=== PATIENT | female | born 2000 | race Caucasian/White ===

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

== ENCOUNTER 2021-02-02 12:13 | Emergency (ER) | payer MEDICAID, SELFPAY ==
--- NOTE | 2021-02-02 | ECG_ITS ---
Test Reason : CHEST PAIN Blood Pressure : / mmHG Vent. Rate : 072 BPM Atrial Rate : 072 BPM P-R Int : 142 ms QRS Dur : 072 ms QT Int : 392 ms P-R-T Axes : 037 017 000 degrees QTc Int : 429 ms Normal sinus rhythm Normal ECG When compared with ECG of 23-OCT-2007 08:51, No significant changes seen Referred By: Generic ED Physician Electronically Signed By:Dimitris Reed
--- NOTE | ~2021-02-02 | CT_ITS ---
EXAMINATION: CT ANGIOGRAM OF THE CHEST WITH AND WITHOUT CONTRAST (CT PULMONARY ANGIOGRAM FOR PE) CLINICAL INFORMATION: Reason for Exam chest pain elevated ddimer COMPARISON: None TECHNIQUE: Prior to contrast administration, noncontrast localization images were obtained. Subsequently, multidetector volumetric imaging was performed from the thoracic inlet to below the diaphragms following the administration of 65 mL Omnipaque 350 intravenous contrast. No contrast reaction reported Sagittal, coronal, and MIP oblique sagittal reformatted images were obtained on the CT workstation, uploaded to PACS, and reviewed. This CT examination was performed using dose optimization techniques as appropriate, variously including the following: *Automated exposure control *Adjustment of mA and/or kV according to patient size (this includes techniques or standardized protocols for targeted exams where dose is matched to indication/reason for exam; i.e. extremities or head) *Use of iterative reconstruction technique Total exam dose-length product 480 mGy-cm FINDINGS: QUALITY OF STUDY/CONTRAST BOLUS: Satisfactory. PULMONARY ARTERIES: No central or segmental pulmonary emboli. Evaluation of subsegmental levels is limited due to contrast bolus opacification of the vessels. THORACIC AORTA: No aneurysm or dissection. LUNG: No focal consolidation, nodules or masses. The central airways are patent. PLEURA: No pleural effusion or pneumothorax. MEDIASTINUM: Normal heart size. No pericardial effusion. No hilar or mediastinal lymphadenopathy. No evidence of septal bowing or right heart strain. CHEST WALL/AXILLA: No axillary or internal mammary lymphadenopathy. OSSEOUS STRUCTURES: No acute or suspicious osseous abnormality. UPPER ABDOMEN: Unremarkable. No reflux of contrast into the hepatic veins to suggest elevated right heart pressures. CT/CT angio chest PE protocol IMPRESSION: No pulmonary embolism or other acute intrathoracic abnormality. VTE: negative
[2021-02-02 12:47] VITALS: BP 119/76; PULSE 89; RESP 18; TEMP 37.5; O2SAT 98; BMI 44.1
--- NOTE | 2021-02-02 13:26 | ED_ITS ---
HPI - Recheck/Abnormal Lab/Rx General Chief Complaint: Recheck/Abnormal Lab/Rx Stated Complaint: abnormal labs Time Seen by Provider: 02/02/21 13:24 Source: patient Mode of arrival: ambulatory Limitations: no limitations History of Present Illness complaint: abnormal lab (dimer 580 with PCP yesterday ) Initial visit (ago): day(s) (1) Initial visit for: other (chest pain on and off but worse for past week uses control patches sent for PE r/o) Returns today for: called because of abnormal lab/test Symptoms since prior visit: no new symptoms Context: called for abnormal lab result Associated symptoms: chest pain Related Data Home Medications Medication Instructions Recorded Confirmed clonidine HCl 0.2 mg tablet 0.2 mg PO BEDTIME 02/04/20 dexmethylphenidate 10 mg tablet 20 mg PO DAILY tab 02/04/20 (Focalin) loratadine 10 mg tablet (Claritin) 10 mg PO DAILY 02/04/20 Previous Rx's Medication Instructions Recorded cyclobenzaprine 10 mg tablet 10 mg PO TID PRN #14 tab 02/02/21 ibuprofen 600 mg tablet 600 mg PO Q6H PRN #30 tab 02/02/21 Allergies Allergy/AdvReac Type Severity Reaction Status Date / Time ethinyl estradiol Allergy Mild Unknown Verified 02/02/21 12:46 [From [place] ()] levonorgestrel Allergy Mild Unknown Verified 02/02/21 12:46 [From [facility] ()] Review of Systems Review of Systems: Constitutional : No Weight loss, No Fever, No Chills ENT/Mouth : No sore throat, No Rhinorrhea Eyes: No Eye Pain, No Swelling Cardiovascular : pos Chest Pain, no SOB, no Dyspnea on Exertion, No Orthopnea, No Edema, No Palpitations Respiratory : No Cough, No Sputum Gastrointestinal : no Nausea, No Vomiting, No Diarrhea, No abdominal Pain, No Hematochezia, No Melena Genitourinary : No Dysuria, No Urinary Frequency Musculoskeletal : No joint pain, No Myalgias, No Joint Swelling Skin : No Skin Lesions, No rash Neuro : No Weakness, No Numbness, No Dizziness, No Headache Psych : No Anxiety/Panic, No Depression Heme/Lymph: No Bruising, No Lymphadenopathy Endocrine : No Polyuria, No Polydipsia All other systems reviewed and are negative [facility] Past Medical History Attestation statement: The following information was validated with the patient. Medical History Asthma Asthma COVID-19 Gallstones Morbid obesity Social History Social History (Updated 02/02/21 @ 13:56 by Salma Mcclain DO) Alcohol intake: never Patient Tobacco Use Status: Never used Tobacco Use of substances other than those prescribed or required for medical reasons: No Advance Directives: No Advance Directives Information Provided: No Patient : No Physical Exam Vital Signs: Vital Signs: Last Vital Signs Temp 99.5 F 02/02/21 12:47 Pulse 65 02/02/21 15:24 Resp 16 02/02/21 15:24 BP 112/65 02/02/21 15:24 Pulse Ox 99 02/02/21 15:24 BMI result Body Mass Index 44.1 Appearance: Alert. Oriented X3. No acute distress. Eyes: Pupils equal, round and reactive to light. ENT: Pharynx normal. Neck: Normal inspection. Neck supple. CVS: Normal heart rate and rhythm. Pulses normal. Respiratory: No respiratory distress. Breath sounds normal. Chest: ttp along sternum reproduces pain Abdomen: Soft and nontender. Skin: Skin warm and dry. Normal skin color. Normal skin turgor. Extremities: No lower extremity edema. No calf ttp Neuro: Oriented X 3. No motor deficit. No sensory deficit. Course Course Course Narrative: signed out to Darleen Nava pending CTA MDM - Recheck/Abnormal Lab/Rx MDM Narrative Medical decision making narrative: 20 yo female with control patches on and off chest pain but notes past week much worse she saw her PCP yesterday who ran a ddimer test and it came back at 580 sent to ED for CTA - at this time will obtain EKG, troponin, CTA for PE though I think her exam is more concerning for costochondritis Lab Data Result diagrams: 02/02/21 15:42 02/02/21 15:42 Labs: Lab Results 02/02/21 02/02/21 02/02/21 Range/Units 15:42 15:42 15:42 WBC 8.9 (4.8-10.8) X10*3/uL RBC 4.46 (4.20-5.50) X10*6/uL Hgb 11.2 L (12.0-16.0) g/dl Hct 35.8 L (37.0-47.0) % MCV 80.3 (80.0-98.0) fL MCH 25.1 L (27.0-33.0) pg MCHC 31.3 (31.0-35.0) g/dl RDW 14.3 (11.0-16.0) % Plt Count 293 (160-400) X10*3/uL MPV 10.4 (9.4-12.3) fL Immature Gran % (Auto) 0.1 (0.0-0.4) % Neut % (Auto) 67.2 (45-73) % Lymph % (Auto) 24.3 (20-40) % [place] % (Auto) 5.8 (2-11) % Eos % (Auto) 2.2 (0-4) % Baso % (Auto) 0.4 (0-2) % Lymph # (Auto) 2.2 (1.2-4.9) X10*3/uL [place] # (Auto) 0.5 (0.1-1.2) X10*3/uL Eos # (Auto) 0.2 (0.0-0.4) X10*3/uL Baso # (Auto) 0.0 (0.0-0.2) X10*3/uL Abs Immat Gran (auto) 0.01 (0.00-0.03) X10*3/uL Absolute Neuts (auto) 6.0 (2.0-8.3) x10*3/uL Absolute Nucleated RBC 0.000 (0.0-0.012) X10*3/uL Nucleated RBC % (auto) 0.0 (0.0-0.2) /100WBC Sodium 141 (135-145) mmol/L Potassium 4.8 (3.3-5.1) mmol/L Chloride 111 H (96-108) mmol/L Carbon Dioxide 21 L (22-29) mmol/L Anion Gap 14 (12-20) BUN 8 L (9-16) mg/dL Creatinine 0.73 (0.5-1.4) mg/dL Estim Creat Clear Calc 155.5 Estimated GFR > 60 Random Glucose 83 (60-115) mg/dL Calcium 8.5 (8.4-10.2) mg/dL Troponin I High Sens < 3.5 (<3.5-17.0) ng/L ECG Data Attestation: I personally reviewed and interpreted this ECG as follows: ECG interpretation date: 02/02/21 ECG interpretation time: 14:09 Interpretation: Rate: 72 Rhythm: NSR [place]: normal Normal P waves. Normal SEN. Normal QRS complex. ST T wave : inverted inferior, nonspecific anterior no NANI qTC: normal prior studies: none The study has been interpreted contemporaneously by me. . Discharge Plan Discharge Clinical Impression: Acute costochondritis Instructions: Costochondritis (ED) Additional Instructions: return to ED for any worsening symptoms or concerns Prescriptions: New cyclobenzaprine 10 mg tablet 10 mg PO TID PRN (Reason: muscle spasm) Qty: 14 RF: 0 ibuprofen 600 mg tablet 600 mg PO Q6H PRN (Reason: pain) Qty: 30 RF: 0 No Action dexmethylphenidate [Focalin] 10 mg tablet 20 mg PO DAILY RF: 0 clonidine HCl 0.2 mg tablet 0.2 mg PO BEDTIME RF: 0 loratadine [Claritin] 10 mg tablet 10 mg PO DAILY RF: 0 Stand Alone Forms: Work/School Release
[2021-02-02] MEDS: Ketorolac Tromethamine 15 MG/ML VIAL 30 MG IVPUSH (15:20)
[2021-02-02] MEDS: Cyclobenzaprine HCl 10 MG TABLET PO (15:21)
[2021-02-02 15:24] VITALS: BP 112/65; PULSE 65; RESP 16; O2SAT 99
[2021-02-02 15:47] LABS: MANUAL DIFF FLAG NO
[2021-02-02 15:49] LABS: Basophils Percent Auto 0.4 % (0-2); Eosinophils Absolute Auto 0.2 X10*3/uL (0.0-0.4); Eosinophils Percent Auto 2.2 % (0-4); Hematocrit 35.8 % (37.0-47.0); Hemoglobin 11.2 g/dl (12.0-16.0); Imm Gran Abs Auto 0.01 X10*3/uL (0.00-0.03); Imm Gran Pct Auto 0.1 % (0.0-0.4); Lymphocytes Absolute Auto 2.2 X10*3/uL (1.2-4.9); Lymphocytes Percent Auto 24.3 % (20-40); Mean Corpuscular HGB Conc 31.3 g/dl (31.0-35.0); Mean Corpuscular Hemoglobin 25.1 pg (27.0-33.0); Mean Corpuscular Volume 80.3 fL (80.0-98.0); Mean Platelet Volume 10.4 fL (9.4-12.3); Monocytes Absolute Auto 0.5 X10*3/uL (0.1-1.2); Monocytes Percent Auto 5.8 % (2-11); Neutrophils Percent Auto 67.2 % (45-73); Platelet Count 293 X10*3/uL (160-400); Red Blood Count 4.46 X10*6/uL (4.20-5.50); Red Cell Distribution Width 14.3 % (11.0-16.0); White Blood Count 8.9 X10*3/uL (4.8-10.8)
[2021-02-02 16:03] LABS: Anion Gap 14 (12-20); Blood Urea Nitrogen 8 mg/dL (9-16); Calcium 8.5 mg/dL (8.4-10.2); Carbon Dioxide 21 mmol/L (22-29); Chloride 111 mmol/L (96-108); Creatinine Clr Calc Pharmacy 155.5; Estimated Glomerular Filt Rate > 60; Glucose Random 83 mg/dL (60-115); Potassium 4.8 mmol/L (3.3-5.1); Sodium 141 mmol/L (135-145)
[2021-02-02 16:07] LABS: Troponin-I High Sensitivity < 3.5 ng/L (<3.5-17.0)
[2021-02-02] MEDS: iohexoL 350 MG/ML 100 ML INFUS..BTL 65 ML IV (16:45)
[2021-02-02 17:45] LABS: UPreg QC Valid YES; Urine Pregnancy NEGATIVE (NEGATIVE)
[2021-02-02 17:51] VITALS: BP 123/66; PULSE 68; RESP 16; TEMP 36.7; O2SAT 99
== END 2021-02-02 18:53 | disposition home or self-care (01) ==
PROVIDERS: Emergency Provider Emergency Medicine
DX: M94.0 Chondrocostal junction syndrome [Tietze] (principal); J45.909 Unspecified asthma, uncomplicated
CPT/HCPCS: 36415; 71275; 80048; 81025; 84484; 85025; 93005; 96374; 99284; J1885; Q9967

== ENCOUNTER → 2021-03-24 13:53 | Outpatient (REF) | payer MEDICAID, SELFPAY ==
--- NOTE | 2021-03-24 13:56 | CA_ITS ---
Transthoracic Echocardiogram Patient (Last, First, Middle): Emely Morgan, Gender: Female Date of : 2000 Age: 21 Procedure Date: 03/24/2021 Procedure Type: Transthoracic Echocardiogram Location: OP Height: 162.56 cm Weight: 117.03 kg BSA: 2.18 m2 Heart Rate: bpm BP: 115 / 70 mmHg Child Development Specialist: ESVIN Referring MD: Bisi Neil NP Hospitality Workers: Josiah Stover MD Symptoms: J46.20 MILD INTERMITTENT ASTHMA, R07.9 CHEST PAIN Study Quality: Fair ECG Rhythm: Sinus Conclusions: - Normal study Findings Left Ventricle Normal left ventricular size, thickness, and systolic function. The visually estimated ejection fraction is between 60-65%. There is no evidence of regional wall motion abnormalities. Spectral Doppler is indicative of a normal filling pattern. Patient was administered definity and developed side effects with chest discomfort and shortness of breath. Hemodynamically she was stable. Repeated limited echocardiogram post reaction which showed normal LV systolic function with no regional wall motion abnormality and normal global longitudinal endocardial strain at -18.8%. Right Ventricle Normal right ventricular cavity size and systolic function. Atria Both atria are normal in size. There is no evidence of interatrial shunt. Aortic Valve The aortic valve structure and function is likely normal. There is no aortic valve stenosis. There is no aortic valve regurgitation. Mitral Valve Normal mitral valve structure and function. There is trace mitral valve regurgitation. There is no mitral valve stenosis. Pulmonic Valve The pulmonic valve is likely normal. There is mild pulmonic valve regurgitation. Tricuspid Valve Normal tricuspid valve structure. There is trace tricuspid valve regurgitation. The right ventricular systolic pressure is normal. The right ventricular systolic pressure is 24 mmHg. Normal right atrial pressure. There is no evidence of pulmonary hypertension. Great Vessels All visible segments of the aorta are normal in size. The pulmonary artery was not well visualized. Venous The inferior vena cava is normal in size and collapses greater than 50% with inspiration. Pericardium/Pleural There is no evidence of pericardial effusion. Prior Study Comparison No prior study available for comparison. Measurements 2D Linear Measurements IVSd: 0.77 0.6-0.9/0.6-1.0 cm LVIDd: 4.77 3.9-5.3/4.2-5.9 cm LVIDd Index: 2.19 2.4-3.2/2.2-3.1 cm/m2 LVIDs: 2.98 2.0-3.6 cm LVPWd: 0.83 0.7-1.1 cm Ao Root: 2.90 2.1-3.5 cm LA Diam: 3.50 2.7-3.8/3.0-4.0 cm LAIDs Index: 1.61 1.5-2.3 cm/m2 LV Mass: 155.94 67-162/88-224 g LV Mass Index: 71.53 43-95/49-115 g/m2 LVOT Diam: 2.00 3.0+(-)1.3 cm 2D Systolic Function EF 4C: 61.80 >55% EF 2C: 57.60 >55% EF BiP: 59.60 >55% Mitral Valve MV Pk E: 0.75 MV PK A: 0.54 MV Decel Time: 188.00 E/A: 1.40 E'Lateral: 12.20 E'Medial: 10.70 E/E' Med: 7.00 E/E' Lat: 6.20 PHT: 55.00 MVA PHT: 4.00 Decel [place]: 4.01 Aortic Valve AoV Pk Familia: 1.22 AoV Mn Familia: 0.86 AoV VTI: 0.23 AoV Pk Grad: 6.00 Aov Mn Grad: 3.00 LVOT LVOT Diam: 2.00 LVOT Area: 3.14 Diastolic Function MV Pk E: 0.75 MV Pk A: 0.54 E/A: 1.40 E'Medial: 10.70 E/E' Med: 7.00 E' Laterial: 12.20 E/E' Lat: 6.20 Right Ventricle TAPSE (mm): 21.70 TVS' Familia: 13.40 Tricuspid Valve TR Pk Familia: 2.27 TR Pk Grad: 21.00 RA Press: 3.00 RVSP: 24.00 Great Vessels Aorta Ao Root-2D: 2.90 2.0-3.7 cm Ao Asc: 2.80 2.1-3.4 cm Ao Arch: 2.50 Updated in Other Vendor System with Status of Final Josiah Stover MD electronically signed on 03/24/2021 5:47:20 PM with status of Final
== END ==
LOC: HO.CARD 13:53
PROVIDERS: Visit Provider Emergency Medicine
DX: R07.9 Chest pain, unspecified (principal); J45.20 Mild intermittent asthma, uncomplicated
CPT/HCPCS: 93306; Q9957

== ENCOUNTER 2021-03-24 15:31 | Emergency (ER) | payer MEDICAID, SELFPAY ==
[2021-03-24 15:46] VITALS: BP 122/58; PULSE 82; RESP 22; O2SAT 99; BMI 31.4
--- NOTE | 2021-03-24 15:51 | PC.NURSE ---
cardiology at bedside to complete echo test
[2021-03-24 16:05] VITALS: BMI 44.2
--- NOTE | 2021-03-24 16:05 | ED_ITS ---
HPI - Allergic Reaction General Chief complaint: Allergic Reaction Stated complaint: Chest Pain Time Seen by Provider: 03/24/21 15:51 Source: patient Mode of arrival: wheelchair Limitations: no limitations History of Present Illness HPI narrative: Patient is a 21-year-old female with past medical history of mild intermittent asthma, gallstones, morbid obesity. She was having outpatient echocardiogram with definity contrast when she developed symptoms concerning for allergic reaction. She reports that approximately 1 minute after the injection of the contrast she developed chest heaviness, shortness of breath, and a sensation that she was going to pass out. Upon arrival back to the emergency department, a chest heaviness and shortness of breath and lightheadedness had subsided. February 02, 2021 she was evaluated in the emergency department for concerns about a PE, due to elevated D-dimer, CTA negative and she was discharged home to follow-up with her primary care provider. She continues to have anterior chest pain that radiates upward into her jaw intermittently, and an echocardiogram was ordered outpatient for further evaluation. MD complaint: allergic reaction Onset (ago): hour(s) Exposure: medication Symptoms: difficulty breathing, dizziness and other (Chest heaviness) Treatment prior to arrival: none Related Data Home Medications Medication Instructions Recorded Confirmed clonidine HCl 0.2 mg tablet 0.2 mg PO BEDTIME 02/04/20 dexmethylphenidate 10 mg tablet 20 mg PO DAILY tab 02/04/20 (Focalin) loratadine 10 mg tablet (Claritin) 10 mg PO DAILY 02/04/20 Previous Rx's Medication Instructions Recorded cyclobenzaprine 10 mg tablet 10 mg PO TID PRN #14 tab 02/02/21 ibuprofen 600 mg tablet 600 mg PO Q6H PRN #30 tab 02/02/21 Allergies Allergy/AdvReac Type Severity Reaction Status Date / Time ethinyl estradiol Allergy Mild Unknown Verified 02/02/21 12:46 [From Seasonale ()] levonorgestrel Allergy Mild Unknown Verified 02/02/21 12:46 [From Seasonale (91)] perflutren [From Allergy Shortness Verified 03/24/21 15:52 Definity] of Breath, chest pain Review of Systems Verdana 4l Review of Systems: Verdana 4d [place] 4Bd Constitutional : [place] 4d No Fever, No Chills [place] 4Bd ENT/Mouth : [place] 4d No oropharyngeal swelling, No Hoarseness, No Swallowing Difficulty [place] 4Bd Eyes: [place] 4d No Eye Pain, No Swelling, No Redness [place] 4Bd Cardiovascular : ArialArial 4d No Chest Pain, No SOB Respiratory : No Cough, No Sputum, No Wheezing, No Dyspnea Gastrointestinal : No Nausea, No Vomiting, No Diarrhea, No abdominal Pain Genitourinary : No Dysuria, No Urinary Frequency, No Hematuria Musculoskeletal : No joint pain, No Myalgias, No Joint Swelling Skin : No Skin Lesions, No rash Neuro : No Weakness, No Numbness, No Headache Psych : No Anxiety/Panic, No Depression Heme/Lymph: No Bruising, No Lymphadenopathy Endocrine : No Polyuria, No Polydipsia All other systems reviewed and are negative [facility] Past Medical History Attestation statement: The following information was validated with the patient. Source: old records reviewed Medical History Asthma Asthma COVID-19 Gallstones Morbid obesity Social History Social History Alcohol intake: never Patient Tobacco Use Status: Never used Tobacco Advance Directives: No Advance Directives Information Provided: No Patient : No Physical Exam Verdana 4l Vital Signs: Verdana 4d Verd[place] 4d Vital Signs: Verdana 4d Ver[place] 4Bd Last Vital Signs Verdana 4d [employer] New 4d [employer]iter New 4d Pulse 94 03/24/21 16:06 [employer] New 4d Resp 14 03/24/21 16:06 [employer] New 4d BP 137/65 03/24/21 16:06 Pulse Ox 98 03/24/21 16:06 BMI result Body Mass Index 44.2 Vital signs have been reviewed as normal and appeared to be correct. Blood pressure normal.? Heart rate normal.? Respiration rate normal. Temperature normal.? Oxygen saturation normal. Appearance: Alert.?Oriented to person, place and time. No acute distress.?Normal affect. Eyes: Pupils equal, round and reactive to light.?? Nose: Nasal mucosa pink and moist with midline septum, nares patent bilaterally.? Mouth/ Throat: No angioedema. Oral mucosa pink and moist without lesions. Uvula midline, tonsils symmetric, no adenopathy.? Neck: Normal inspection.? Neck supple.?? CVS: Heart sounds normal. Normal heart rate and rhythm.? Pulses normal.?? Respiratory: No respiratory distress.? Lung sounds clear to auscultation bilaterally?? Abdomen: Soft and non-tender. Normoactive bowel sounds. No pulsatile mass.?? Skin: No rash or urticaria. Skin warm and dry.? Normal skin color.? Normal skin turgor.?? Extremities: No lower extremity edema.? Neuro: Moves all extremities spontaneously. Sensation intact bilaterally. No focal neuro deficits. Ambulates with normal steady gait. Course Course Course Narrative: Patient is a 21-year-old female being evaluated for allergic reaction to Definity contrast. Currently, she is well appearing, mentating appropriately, speaking in clear full sentences, no acute respiratory distress. Plan to monitor the patient for 1-2 hours, and if she continues to be asymptomatic for plan for discharge home and follow-up with her primary care provider. Reevaluation(s) Reevaluation #1: Patient continues to be in no acute respiratory distress. Alert and oriented x3. Tolerating p.o. fluids and food without any issue. Patient to be discharged home. Discussed return precautions. Patient agreeable with plan. Time: 17:13 [facility] - Allergic Reaction Medical Records Attestation: I reviewed the patient's medical records. Discharge Plan Discharge Clinical Impression: Allergic reaction Patient Disposition: Home, Self-Care Instructions: General Allergic Reaction (ED) Additional Instructions: You were evaluated in the emergency department for concerns of an allergic reaction to the Definity contrast dye that you received while having echocardiogram. You were monitored in the emergency department for couple of hours without any difficulty breathing, chest pain, or worsening symptoms. At this time you are being discharged home, you should contact your primary care provider tomorrow to schedule follow-up within 1-3 days. If you develop any new or worsening symptoms or concerns or to return back to the emergency department for re-evaluation. Prescriptions: No Action cyclobenzaprine 10 mg tablet 10 mg PO TID PRN (Reason: muscle spasm) Qty: 14 0RF ibuprofen 600 mg tablet 600 mg PO Q6H PRN (Reason: pain) Qty: 30 0RF dexmethylphenidate [Focalin] 10 mg tablet 20 mg PO DAILY 0RF clonidine HCl 0.2 mg tablet 0.2 mg PO BEDTIME 0RF loratadine [Claritin] 10 mg tablet 10 mg PO DAILY 0RF
[2021-03-24 16:06] VITALS: BP 137/65; PULSE 94; RESP 14; O2SAT 98
== END 2021-03-24 17:29 | disposition home or self-care (01) ==
PROVIDERS: Emergency Provider Emergency Medicine Emergency Medical Services
DX: R07.9 Chest pain, unspecified (principal); R42 Dizziness and giddiness; T50.8X5A Adverse effect of diagnostic agents, initial encounter; Y92.238 Other place in hospital as the place of occurrence of the external cause; J45.909 Unspecified asthma, uncomplicated
CPT/HCPCS: 99284

== ENCOUNTER 2021-06-08 08:01 | Outpatient (REF) | payer MEDICAID, SELFPAY ==
--- NOTE | ~2021-06-08 | US_ITS ---
EXAMINATION: US ABDOMEN COMPLETE CLINICAL INFORMATION: Calculus of gallbladder. COMPARISON: Ultrasound abdomen limited 02/01/2020. CTA chest 02/02/2021. TECHNIQUE: Real-time imaging of the abdominal viscera. FINDINGS: PANCREAS: The pancreas is normal in size and contour and echogenicity. There is no pancreatic ductal distention or retroperitoneal effusion. ABDOMINAL AORTA: The proximal, mid, and distal segments are normal in caliber. INFERIOR VENA CAVA: Visualized portions are normal. LIVER: The liver is smooth in contour and upper limits of normal size. There is borderline increased hepatic parenchymal echogenicity likely mild hepatic steatosis. There is no mass or intrahepatic biliary ductal dilatation. GALLBLADDER: There are numerous dependent gallstones. The gallbladder shows no dilatation or wall thickening. There is no pericholecystic fluid. Sonographic Baig's sign is negative. COMMON BILE DUCT: Normal in caliber measuring 0.3 cm in diameter. RIGHT KIDNEY: Normal. No hydronephrosis. No renal calculi or focal parenchymal lesions. The kidney measures 11.5 cm in maximum dimension. LEFT KIDNEY: Normal. No hydronephrosis. No renal calculi or focal parenchymal lesions. The kidney measures 10.7 cm in maximum dimension. SPLEEN: Normal. The spleen measures 10.6 cm in maximum dimension. FREE FLUID: None. US/US abdomen complete IMPRESSION: Cholelithiasis. No gallbladder wall thickening or ductal dilatation.
== END 2021-06-08 08:02 | disposition home or self-care (01) ==
LOC: HO.US 08:01
PROVIDERS: PCP Nurse Practitioner Family; Visit Provider Nurse Practitioner Family
DX: K80.20 Calculus of gallbladder without cholecystitis without obstruction (principal)
CPT/HCPCS: 76700

== ENCOUNTER 2024-07-28 15:08 | Outpatient (REF) | payer MEDICAID, SELFPAY ==
--- NOTE | ~2024-07-28 | XR_ITS ---
EXAMINATION: XR LUMBOSACRAL SPINE CLINICAL INFORMATION: Low back pain/tail bone pain COMPARISON: None available. TECHNIQUE: Three views of the lumbosacral spine. FINDINGS: The vertebral bodies and posterior elements are normal. The disc spaces are preserved and the vertebral alignment is normal. The sacrum appears intact. SI joints appear normal. The paraspinal soft tissues are normal. XR/XR lumbar spine 2-3V IMPRESSION: Normal lumbosacral spine. Electronically signed by: Timothy Purdy MD 07/28/2024 03:33 PM EDT
--- OUTSIDE RECORDS SUMMARY | 2024-07-28 16:24 | XMS_ITS | Patient Health Record ---
Author Organization [facility] Billing Info Address [address] [place] [address] Care Team Providers Care Chemistry Specialist Name Role Phone RODRIGO HORVATH Primary Care Provider ANALY ARCEO Unavailable OMER MORSE Unavailable [phone] PAMELA TEJADA Unavailable [phone] TEMITOPE FIGUEROA Unavailable [phone] Allergies No Known Allergies Results Component Value Reference Range Notes URINALYSIS, DIP STICK/TABLET REAGENT; AUTOMATED, W/O MICROSCOPY ([id number]) Reviewed date:02/22/2024 07:39:07 AM Interpretation: Performing Lab: Notes/Report: Appearance cloudy Color straw Leukocytes 500 Nitrite POS Urobilinogen Normal Protein 30 Ph 6 Blood NEG Specific [place] 1.015 Ketone NEG Bilirubin NEG Glucose NEG Reason For Referral Reason evaluation and manag ement for vision changes Diagnosis 1 Vision changes (H53. 9) Referral Organization [id number] Referring Provider First Name ANALY Referring Provider Last Name LOLITA PÉREZNunu Referring Provider Speciality Internal M edicine Referred Provider Citlalli Arreaga Referred Provider Specialty Ophthalmolog y Referral Priority Routine Reason evaluation and manag ement for MDD. Patient interested in therapy. Diagnosis 1 MDD (major depressiv e disorder), recurrent episode, moderate (F33.1) Referral Organization [id number] Referring Provider First Name ANALY Referring Provider Last Name LOLITA BOYLE Referring Provider Speciality Internal M edicine Referred Provider jeanine Yap Referred Provider Specialty PSYCHOLOGY General Notes ARMANI MO 12/25/2023 04:46:20 PM >faxed at [phone]. Referral Priority Routine Medications Medication SIG (Take, Route, Frequency, Duration) Notes Start Date End Date Status Cholecalciferol 1.25 MG (38711 UT) 1 capsule Orally once a week for 60 days 09/12/2023 Active Venlafaxine HCl 75 MG 1 tablet with food Orally Once a day Active Dexmethylphenidate HCl 10 MG 1 tablet Or ally Twice a day Active Clonidine HCl 0.1 MG 1 tablet Orally Onc e a day for 30 days Not-Taking Escitalopram Oxalate 5 MG TAKE 1 TABLET BY MOUTH EVERY DAY FOR 30 DAYS Oral for 30 Days Not-Taking Nitrofurantoin Monohyd Macro 100 MG 1 capsule with food Orally every 12 hrs for 5 day(s) 11/30/2023 Not-Taking Vitamin D3 25 MCG (1000 UT) 1 capsule Or ally Once a day for 90 days 08/24/2023 Active Social History Tobacco Use: Social History Observation Description Date Details (start date - stop date) Never Smoker NA - NA Tobacco Status: Question Answer Notes Patient is a never smoker Problems Problem Type SNOMED Code ICD Code Onset Dates Problem Status W/U Status Risk Notes Problem 83270030800286 Morbid (severe) obesity due to excess calories (E66.01) Active confirmed Lifestyle modifications discussed. Counseled on 1800kcal/day intake and food logging for behavioral intervention. Also advised on healthy hydration. Discussed possibility of medication for weight management assistance if lifestyle alone not adequate, offered to the patient, but patient wants to try lifestyle modification changes first. Not interested in bariatric referral at this time. F/U in 3 months Problem 82617322 Palpitations (R00.2) Active confirmed EKG completed in clinic shows normal sinus rhythm and no significant ST changes. Patient reports intermittent episodes for years now, possibly related to anxiety. If persistent, consider cards referral for Holter monitor. Problem 773980037 Dietary counseling and surveillance (Z71.3) Active confirmed Problem 279048475 Prediabetes (R73.03) Active confirmed Never on any medications. Patient was counseled on lifestyle modification including moderate to intense exercise at least 150 minutes per week. balanced diet low in fat, carbohydrate, glucose, salt. Calorie count, limited to a 1800 calories per day. f/u with A1c in 3 months for follow-up. Consider metformin if no improvement. Problem 358796110 Body mass index [BMI] 45.0-49.9, adult (Z68.42) Active confirmed Problem 86043601 MAL (generalized anxiety disorder) (F41.1) Active confirmed MAL 7- 8. Patient following with psych. next appt in 4 weeks. Problem 354654080 MDD (major depressive disorder), recurrent episode, moderate (F33.1) Active confirmed Currently On venlafaxine. Denies SI/HI. Interested on seen Psychology for therapy. Referral given today. Problem 416507395 Attention deficit hyperactivity disorder (ADHD), unspecified ADHD type (F90.9) Active confirmed Vital Signs Heart Rate 62 /min 12/25/2023 Temperature 97.3 degrees Fahrenheit 12/25/2023 Respiratory Rate 16 /min 12/25/2023 Oximetry 98 12/25/2023 Blood pressure diastolic 82 mm Hg 12/25/2023 Height 64 in 12/25/2023 Blood pressure systolic 116 mm Hg 12/25/2023 Weight 263.9 lbs 12/25/2023 BMI 45.29 kg/m2 12/25/2023 Encounters Encounter Location Date Provider Diagnosis [id number] [address] [place] [address] [phone] 08/24/2023 OMER MORSE Vitamin D deficiency E55.9 [id number] [address] [place] [address] [id number] 09/10/2023 ANALY LOLITA HOOKER Vitamin D deficiency E55.9 [id number] [address] [place] [address] [phone] 08/24/2023 PAMELA TEJADA Morbid (severe) obesity due to excess calories E66.01 ; Dietary counseling and surveillance Z71.3 ; Prediabetes R73.03 ; Vitamin D deficiency E55.9 and Severe obesity (BMI >= 40) E66.01 [id number] [facility] [address] [place] [address] [id number] 11/30/2023 TEMITOPE BENEDICT Acute UTI N39.0 ; Dietary counseling and surveillance Z71.3 and Severe obesity (BMI >= 40) E66.01 [id number] [facility] [address] [place] [address] [id number] 12/25/2023 ANALY HOOKER Vision changes H53.9 ; MDD (major depressive disorder), recurrent episode, moderate F33.1 ; Dietary counseling and surveillance Z71.3 and Severe obesity (BMI >= 40) E66.01 Assessments Encounter Date Diagnosis (ICD Code) Assessment Notes Treatment Notes Treatment Clinical Notes Section Notes 08/24/2023 Morbid (severe) obesity due to excess calories (ICD-10 - E66.01) Lifestyle modifications discussed. Counseled on 1800kcal/day intake and food logging for behavioral intervention. Also advised on healthy hydration. Discussed possibility of medication for weight management assistance if lifestyle alone not adequate, offered to the patient, but patient wants to try lifestyle modification changes first. Not interested in bariatric referral at this time. F/U in 3 months Learning About Obesity material was published, Body Mass Index: Care Instructions material was published 08/24/2023 Dietary counseling and surveillance (ICD-10 - Z71.3) Encouraged balance nutrition and regular exercise., Learning About Healthy Weight material was published 12/25/2023 Vision changes (ICD-10 - H53.9) Ophthalmology referral given today. 12/25/2023 MDD (major depressive disorder), recurrent episode, moderate (ICD-10 - F33.1) Currently On venlafaxine. Denies SI/HI. Interested on seen Psychology for therapy. Referral given today. Learning About Depression material was published, Learning About Depression material was published 11/30/2023 Acute UTI (ICD-10 - N39.0) Given the patient's symptoms as well as positive urinalysis we will prescribe Macrobid 100 mg b.i.d. for 5 days. We will follow up in approximately 5 weeks at which point we will get a repeat urinalysis given the patient's sample containing elevated levels of protein. Urinary Tract Infection (UTI) in Women: Care Instructions material was published 08/24/2023 Vitamin D deficiency (ICD-10 - E55.9) Ordered vitamin-D 1000 q.d.. To be follow-up in 3 months with repeat vitamin-D 09/10/2023 Vitamin D deficiency (ICD-10 - E55.9) 11/30/2023 Dietary counseling and surveillance (ICD-10 - Z71.3) Encouraged balance nutrition and regular exercise., Learning About Healthy Weight material was published 12/25/2023 Dietary counseling and surveillance (ICD-10 - Z71.3) Encouraged balance nutrition and regular exercise. Encouraged balance nutrition and regular exercise., Learning About Healthy Weight material was published Encouraged balance nutrition and regular exercise., Learning About Healthy Weight material was published 08/24/2023 Prediabetes (ICD-10 - R73.03) Never on any medications. Patient was counseled on lifestyle modification including moderate to intense exercise at least 150 minutes per week. balanced diet low in fat, carbohydrate, glucose, salt. Calorie count, limited to a 1800 calories per day. f/u with A1c in 3 months for follow-up. Consider metformin if no improvement. Prediabetes: Care Instructions material was published 12/25/2023 Severe obesity (BMI >= 40) (ICD-10 - E66.01) Encouraged balance nutrition and regular exercise. Encouraged balance nutrition and regular exercise., Body Mass Index: Care Instructions material was published Encouraged balance nutrition and regular exercise. 08/24/2023 Vitamin D deficiency (ICD-10 - E55.9) Ordered vitamin-D 1000 q.d.. To be follow-up in 3 months with repeat vitamin-D Learning About Vitamin D material was published 11/30/2023 Severe obesity (BMI >= 40) (ICD-10 - E66.01) Encouraged balance nutrition and regular exercise., Body Mass Index: Care Instructions material was published 08/24/2023 Severe obesity (BMI >= 40) (ICD-10 - E66.01) Encouraged balance nutrition and regular exercise. Plan Of Treatment No Information Insurance Providers Payer Name Payer Address Payer Phone Subscriber Number Group Number Insured Name Patient Relationship to Insured Coverage Start Date Coverage End Date [employer] [address] [place], [place] [id number] Emely Maldonado Self - patient is the insured Medical (General) History Medical History History ICD Code asthma chronic depression Anxiety disorder ADHD Panic attacks
== END 2024-07-28 15:09 | disposition home or self-care (01) ==
LOC: HO.HHCX 15:08
PROVIDERS: Visit Provider Internal Medicine
DX: M54.50 Low back pain, unspecified (principal); M53.3 Sacrococcygeal disorders, not elsewhere classified
CPT/HCPCS: 72100

== ENCOUNTER → 2024-07-28 15:09 | Outpatient (BNV) | payer MEDICAID, SELFPAY | PROVIDERS: Visit Provider Radiology Diagnostic Radiology | DX: M54.50 Low back pain, unspecified (principal) | CPT/HCPCS: 72100 ==

== ENCOUNTER 2024-09-17 10:01 | Outpatient (REF) | payer MEDICAID, SELFPAY ==
--- OUTSIDE RECORDS SUMMARY | 2024-04-10 05:30 | XMS_ITS ---
Author Organization [facility] Billing Info Address [address] [place] [id number] Care Team Providers Care Label Folder Name Role Phone RODRIGO HORVATH Primary Care Provider ANALY ARCEO Unavailable REASON FOR VISIT 15 wk f/u Encounters Encounter Location Date Provider Diagnosis [address] [place] [address] [address] [place] [id number] 04/10/2024 ANALY JORDAN Plan Of Treatment No Information Progress Notes * Mandeep MALDONADOOB:0 2000 (24 yo F)Acc No.[id number]:04/10/2024 PROGRESS NOTE Patient: Niesha LIRIANO Emely JORDAN Appointment Provider: Stella JORDAN MD :2000 A ge:24 Y S ex:Female Date:04/10/2024 C HN#:[id number] Address:[address] [place] [address] [address], [address], [id number] Pcp:RODRIGO HORVATH Subjective: * Chief Complaints: * 1 . 15 wk f/u. * Medical History: Objective: * Vitals: Assessment: Plan: * Treatment: * Care Plan Details* * This progress note has not b een verified nor is it considered complete until locked and signed by the provider. Sign off status: Pending * Appointment Provider: Stella JORDAN MD Date: 0 04/10/2024 Generated for Printing/Faxing/eTransmitting on: 0 09/17/2024 10:53 AM KATHYT
--- OUTSIDE RECORDS SUMMARY | 2024-09-17 09:00 | XMS_ITS | Encounter Summary ---
Author Organization [employer] Address [address] [place] [address] Care Team Providers Care Cinetechnician Name Role Phone Shruti Sunshine DO Primary Care Provider + [phone] Reason for Visit * Reason Comments Establish Care Encounter Details Date Type Department Care Team (Latest Contact Info) Description 09/17/2024 9:00 AM EDT Office Visit [facility] MED[facility] [address] [place] [address] Shruti Sunshine DO [address] [place] [address] Routine history and physical examination of adult (Primary Dx); Major depression, recurrent, chronic (CMS/HCC); Attention deficit hyperactivity disorder (ADHD), unspecified ADHD type; Mild intermittent asthma without complication; Polycystic ovary syndrome; BMI 45.0-49.9, adult (CMS/HCC); Encounter for immunization Social History Tobacco Use Types Packs/Day Years Used Date Smoking Tobacco: Never Tobacco Cessation:Counseling Given: Not Answered Alcohol Use Standard Drinks/Week Comments Never 0 (1 standard drink = 0.6 oz pur e alcohol) Depression Answer Date Recorded Patient Health Questionnaire-9 Score 12 09/17/2024 Patient Health Questionnaire-9 Score 12 09/17/2024 Last PHQ-9: Questionnaire Data Not on file 0 09/17/2024 Housing Stability Answer Date Recorded What is your housing situation today? I have wander [place] 09/09/[address] you li ve. Do you have problems with any of the following? None of the above 09/09/2024 Food Insecurity Answer Date Recorded Within the past 12 months, y ou worried that your food would run out before you got money to buy more: Never True 09/09/2024 Within the past 12 months,th e food you bought just didn't last and you didn't have enough money to get more: Never True Transportation Answer Date Recorded In the past 12 months, has l ack of transportation kept you from medical appts, meetings, work or from getting things needed for daily living? No 09/09/2024 Utilities Answer Date Recorded In the past 12 months, has t he electric, gas, oil or water company threatened to shut off services in your home? No 09/09/2024 Depression Answer Date Recorded Patient Health Questionnaire-2 Score 2 09/17/2024 Internet Access Answer Date Recorded Internet Access Q1 Yes 09/09/2024 Internet Access Q2 Not on file 09/09/2024 Comments No Sex and Gender Information Value Date Recorded Sex Assigned at Female 12/26/2021 10:16 AM EDT Legal Sex Female 10:16 AM EDT Gender Identity Female 12/26/2021 10:16 AM EDT Sexual Orientation Bisexual 12/26/2021 10 :16 AM EDT documented as of this encounter Last Filed Vital Signs Vital Sign Reading Time Taken Comments Blood Pressure 120/82 09/17/2024 9:08 AM EDT Pulse 84 09/17/2024 9:08 AM EDT Temperature 36.8 C (98.3 F) 09/17/2024 9:08 AM EDT Respiratory Rate 20 09/17/2024 9:08 AM EDT Oxygen Saturation - - Inhaled Oxygen Concentration - - Weight 130 kg (286 lb 3.2 oz) 09/17/2024 9:08 AM EDT Height 162.6 cm (5' 4 ) 09/17/2024 9:08 AM EDT Body Mass Index 49.13 09/17/2024 9:08 AM EDT documented in this encounter Functional Status * Over the past 2 weeks, how often have you been bothered by any of the following problems? Question Answer Date of Assessment Author Patient Health Questionnaire-2 Score 2 09/17/2024 9:41 AM EDT Audra Castellanos MA * Little interest or pleasure in doing things Answer Date of Assessment Author Several days 09/17/2024 9:41 AM EDT Audra Real MA * Feeling down, depressed, or hopeless Answer Date of Assessment Author Several days 09/17/2024 9:41 AM Audra Sanchez MA * Trouble falling or staying asleep, or sleeping too much Answer Date of Assessment Author Several days 09/17/2024 9:41 AM Audra Sanchez MA * Feeling tired or having little energy Answer Date of Assessment Author More than half the days 09/17/2024 9:41 AM KATHYT Audra Hernandez MA * Poor appetite or overeating Answer Date of Assessment Author Nearly every day 09/17/2024 9:41 AM EDT Audra Mcfarland MA * Feeling bad about yourself - or that you are a failure or have let yourself or your family down Answer Date of Assessment Author Several days 09/17/2024 9:41 AM Audra Sanchez MA * Trouble concentrating on things, such as reading the newspaper or watching television Answer Date of Assessment Author More than half the days 09/17/2024 9:41 AM Audra Johnson MA * Moving or speaking so slowly that other people could have noticed? Or the opposite - being so fidgety or restless that you have been moving around a lot more than usual. Answer Date of Assessment Author Several days 09/17/2024 9:41 AM Audra Sanchez MA * Thoughts that you would be better off or hurting yourself in some way Answer Date of Assessment Author Not at all 09/17/2024 9:41 AM Audra Sanchez MA * Patient Health Questionnaire-9 Score Answer Date of Assessment Author 12 09/17/2024 9:41 AM Audra Sanchez MA * How difficult have these problems made it for you to do your work, take care of things at home, or get along with other people? Answer Date of Assessment Author Very difficult 09/17/2024 9:41 AM Audra Sanchez MA * Over the last 2 weeks, how often have you been bothered by any of the following problems? Question Answer Date of Assessment Author Feeling nervous, anxious, or on edge 1 09/17/2024 9:42 AM EDT Audra Castellanos MA Not being able to stop or control worrying 1 09/17/2024 9:42 AM EDT Adura Castellanos MA Worrying too much about different things 1 09/17/2024 9:42 AM EDT Audra Castellanos MA Trouble relaxing 0 09/17/2024 9:42 AM EDT Audra Hernandez MA Being so restless that it is hard to sit still 1 09/17/2024 9:42 AM EDT Audra Castellanos MA Becoming easily annoyed or irritable 2 09/17/2024 9:42 AM EDT Audra Castellanos MA Feeling afraid as if something awful might happen 0 09/17/2024 9:42 AM EDT Audra Mcfarland MA MAL-7 Total Score 6 09/17/2024 9:42 AM EDT Audra Castellanos MA documented as of this encounter Plan of Treatment Scheduled Orders Name Type Priority Associated Diagnoses Orde r Schedule T4, Free Lab Routine Routine history and physical examination of adult BMI 45.0-49.9, adult (CMS/HCC) Major depression, recurrent, chronic (CMS/HCC) Attention deficit hyperactivity disorder (ADHD), unspecified ADHD type Mild intermittent asthma without complication Polycystic ovary syndrome Expected: 09/17/2024 (Approximate), Expires: 09/17/2025 Lipid Panel, Standard Lab Routine Routine history and physical examination of adult BMI 45.0-49.9, adult (CMS/HCC) Major depression, recurrent, chronic (CMS/HCC) Attention deficit hyperactivity disorder (ADHD), unspecified ADHD type Mild intermittent asthma without complication Polycystic ovary syndrome Expected: 09/17/2024 (Approximate), Expires: 09/17/2025 TSH Lab Routine Routine history and physical examination of adult BMI 45.0-49.9, adult (CMS/HCC) Major depression, recurrent, chronic (CMS/HCC) Attention deficit hyperactivity disorder (ADHD), unspecified ADHD type Mild intermittent asthma without complication Polycystic ovary syndrome Expected: 09/17/2024 (Approximate), Expires: 09/17/2025 Vitamin D, 25-Hydroxy, Total, Immunoassay Lab Routine Routine history and physical examination of adult BMI 45.0-49.9, adult (CMS/HCC) Major depression, recurrent, chronic (CMS/HCC) Attention deficit hyperactivity disorder (ADHD), unspecified ADHD type Mild intermittent asthma without complication Polycystic ovary syndrome Expected: 09/17/2024 (Approximate), Expires: 09/17/2025 Hepatic Function Panel Lab Routine Routine history and physical examination of adult BMI 45.0-49.9, adult (CMS/HCC) Major depression, recurrent, chronic (CMS/HCC) Attention deficit hyperactivity disorder (ADHD), unspecified ADHD type Mild intermittent asthma without complication Polycystic ovary syndrome Expected: 09/17/2024 (Approximate), Expires: 09/17/2025 Hemoglobin A1c Lab Routine Routine history and physical examination of adult BMI 45.0-49.9, adult (CMS/HCC) Major depression, recurrent, chronic (CMS/HCC) Attention deficit hyperactivity disorder (ADHD), unspecified ADHD type Mild intermittent asthma without complication Polycystic ovary syndrome Expected: 09/17/2024 (Approximate), Expires: 09/17/2025 CBC Lab Routine Routine history and physical examination of adult BMI 45.0-49.9, adult (CMS/HCC) Major depression, recurrent, chronic (CMS/HCC) Attention deficit hyperactivity disorder (ADHD), unspecified ADHD type Mild intermittent asthma without complication Polycystic ovary syndrome Expected: 09/17/2024, Expires: 09/17/2025 Basic Metabolic Panel Lab Routine Routine history and physical examination of adult BMI 45.0-49.9, adult (CMS/HCC) Major depression, recurrent, chronic (CMS/HCC) Attention deficit hyperactivity disorder (ADHD), unspecified ADHD type Mild intermittent asthma without complication Polycystic ovary syndrome Expected: 09/17/2024 (Approximate), Expires: 09/17/2025 Varicella zoster antibody, IgG Lab Routine Routine history and physical examination of adult BMI 45.0-49.9, adult (CMS/HCC) Major depression, recurrent, chronic (CMS/HCC) Attention deficit hyperactivity disorder (ADHD), unspecified ADHD type Mild intermittent asthma without complication Polycystic ovary syndrome Expected: 09/17/2024 (Approximate), Expires: 09/17/2025 Measles, Mumps, and Rubella (MMR) Antibodies (IgG) Panel, Immune Status Lab Routine Routine history and physical examination of adult BMI 45.0-49.9, adult (CMS/HCC) Major depression, recurrent, chronic (CMS/HCC) Attention deficit hyperactivity disorder (ADHD), unspecified ADHD type Mild intermittent asthma without complication Polycystic ovary syndrome Expected: 09/17/2024 (Approximate), Expires: 09/17/2025 Hepatitis B surface antigen, EIA Lab Routine Routine history and physical examination of adult BMI 45.0-49.9, adult (CMS/HCC) Major depression, recurrent, chronic (CMS/HCC) Attention deficit hyperactivity disorder (ADHD), unspecified ADHD type Mild intermittent asthma without complication Polycystic ovary syndrome Expected: 09/17/2024 (Approximate), Expires: 09/17/2025 Chlamydia/N. Gonorrhoeae RNA, TMA, Urogenitial Microbiology Routine Routine history and physical examination of adult BMI 45.0-49.9, adult (CMS/HCC) Major depression, recurrent, chronic (CMS/HCC) Attention deficit hyperactivity disorder (ADHD), unspecified ADHD type Mild intermittent asthma without complication Polycystic ovary syndrome Ordered: 09/17/2024 HIV-1/2 Antigen and Antibodies, Fourth Generation, with Reflexes Lab Routine Routine history and physical examination of adult BMI 45.0-49.9, adult (CMS/HCC) Major depression, recurrent, chronic (CMS/HCC) Attention deficit hyperactivity disorder (ADHD), unspecified ADHD type Mild intermittent asthma without complication Polycystic ovary syndrome Expected: 09/17/2024 (Approximate), Expires: 09/17/2025 Hepatitis C Antibody with Reflex to HCV, RNA, Quantitative, Real-Time PCR Lab Routine Routine history and physical examination of adult BMI 45.0-49.9, adult (CMS/HCC) Major depression, recurrent, chronic (CMS/HCC) Attention deficit hyperactivity disorder (ADHD), unspecified ADHD type Mild intermittent asthma without complication Polycystic ovary syndrome Expected: 09/17/2024, Expires: 09/17/2025 RPR (Monitor) with Reflex to Titer Lab Routine Routine history and physical examination of adult BMI 45.0-49.9, adult (CMS/HCC) Major depression, recurrent, chronic (CMS/HCC) Attention deficit hyperactivity disorder (ADHD), unspecified ADHD type Mild intermittent asthma without complication Polycystic ovary syndrome Expected: 09/17/2024, Expires: 09/17/2025 Hepatitis B Surface Antibody, Qualitative Lab Routine Routine history and physical examination of adult BMI 45.0-49.9, adult (CMS/HCC) Major depression, recurrent, chronic (CMS/HCC) Attention deficit hyperactivity disorder (ADHD), unspecified ADHD type Mild intermittent asthma without complication Polycystic ovary syndrome Expected: 09/17/2024 (Approximate), Expires: 09/17/2025 Hepatitis A Antibody, Total Lab Routine Routine history and physical examination of adult BMI 45.0-49.9, adult (CMS/HCC) Major depression, recurrent, chronic (CMS/HCC) Attention deficit hyperactivity disorder (ADHD), unspecified ADHD type Mild intermittent asthma without complication Polycystic ovary syndrome Expected: 09/17/2024 (Approximate), Expires: 09/17/2025 Hepatitis B Core Antibody, Total Lab Routine Routine history and physical examination of adult BMI 45.0-49.9, adult (CMS/HCC) Major depression, recurrent, chronic (CMS/HCC) Attention deficit hyperactivity disorder (ADHD), unspecified ADHD type Mild intermittent asthma without complication Polycystic ovary syndrome Expected: 09/17/2024 (Approximate), Expires: 09/17/2025 T-SPOT .TB Lab Routine Routine history and physical examination of adult BMI 45.0-49.9, adult (CMS/HCC) Major depression, recurrent, chronic (CMS/HCC) Attention deficit hyperactivity disorder (ADHD), unspecified ADHD type Mild intermittent asthma without complication Polycystic ovary syndrome Expected: 09/17/2024 (Approximate), Expires: 09/17/2025 Insulin Lab Routine Routine history and physical examination of adult BMI 45.0-49.9, adult (CMS/HCC) Major depression, recurrent, chronic (CMS/HCC) Attention deficit hyperactivity disorder (ADHD), unspecified ADHD type Mild intermittent asthma without complication Polycystic ovary syndrome Expected: 09/17/2024 (Approximate), Expires: 09/17/2025 documented as of this encounter Visit Diagnoses Diagnosis Routine history and physical examination of adult- Primary Major depression, recurrent, chronic (CMS/HCC) Attention deficit hyperactivity disorder (ADHD), unspecified ADHD type Mild intermittent asthma without complication Polycystic ovary syndrome Polycystic ovaries BMI 45.0-49.9, adult (CMS/HCC) Encounter for immunization documented in this encounter Additional Health Concerns Assessment Noted Time PHQ-9 Depression Total Score: 12 025 9:41 AM EDT documented as of this encounter Care Teams Cinetechnician Relationship Specialty Start Date End Date Shruti Sunshine DO [address] [place] [address] PCP - General Family Medicine 09/17/24 documented as of this encounter
--- OUTSIDE RECORDS SUMMARY | 2024-09-17 10:53 | XMS_ITS | Clinical Summary ---
Author Organization [facility] it Address [address] [place] [address] Care Team Providers Care Forensic Artist Name Role Phone Unavailable Primary Care Provider Unavailabl e Social History Tobacco Use Types Packs/Day Years Used Date Smoking Tobacco: Never Assessed Comments Unknown Sex and Gender Information Value Date Recorded Sex Assigned at Not on file Legal Sex Female 9:07 AM EST Gender Identity Not on file Sexual Orientation Not on file Plan of Treatment Health Maintenance Due Date Last Done Comments Gonorrhea/Chlamydia Screening 2001 HPV Vaccines (1 - 3-dose series) 2016 Meningococcal B Vaccine (1 o f 2 - Standard) 2017 DTaP,Tdap,and Td Vaccines (1 - Tdap) 2020 Hepatitis B Vaccines (1 of 3 - 19+ 3-dose series) 2020 HIV Screening 01/29/2022 Hepatitis C Screening 01/29/2022 Social Influencers of Health Screening 01/29/2022 Cervical Cancer Screening: P ap Smear 2022 COVID-19 Vaccine (1 - 2023-2 5 season) 2023 Depression Screening 02/27/2024 Influenza Vaccine (#1) 2024 HIB Vaccines Aged Out No longer eligi ble based on patient's age to complete this topic Hepatitis A Vaccines Aged Out No long er eligible based on patient's age to complete this topic IPV Vaccines Aged Out No longer eligi ble based on patient's age to complete this topic MMR Vaccines Aged Out No longer eligi ble based on patient's age to complete this topic Meningococcal ACWY Vaccine Aged Out N o longer eligible based on patient's age to complete this topic Pneumococcal Vaccine: Pediat rics (0 to 5 Years) and At-Risk Patients (6 to 49 Years) Aged Out No longer eligible b ased on patient's age to complete this topic RSV Immunization Patients Un milton 20 months Aged Out No longer eligible b ased on patient's age to complete this topic Varicella Vaccines Aged Out No longer eligible based on patient's age to complete this topic
[2024-09-17 11:15] LABS: Hematocrit 38.3 % (37.0-47.0); Hemoglobin 12.4 g/dl (12.0-16.0); Mean Corpuscular HGB Conc 32.4 g/dl (31.0-35.0); Mean Corpuscular Hemoglobin 26.2 pg (27.0-33.0); Mean Corpuscular Volume 81.0 fL (80.0-98.0); NRBC Abs Auto 0.000 X10*3/uL (0.0-0.012); NRBC Pct Auto 0.0 /100WBC (0.0-0.2); Platelet Count 278 X10*3/uL (160-400); Red Blood Count 4.73 X10*6/uL (4.20-5.50); White Blood Count 8.3 X10*3/uL (4.8-10.8)
[2024-09-17 11:36] LABS: Hemoglobin A1C 120.0356 umol/L; Total Hemoglobin (HGBA1C) 3210.5499 umol/L
[2024-09-17 11:46] LABS: Alanine Aminotransferase 22 U/L (0-31); Albumin Level 4.2 g/dL (3.5-5.0); Alkaline Phosphatase 69 U/L (39-117); Anion Gap 11 (12-20); Aspartate Amino Transferase 21 U/L (5-31); Blood Urea Nitrogen 10 mg/dL (9-16); Calcium 9.1 mg/dL (8.4-10.2); Carbon Dioxide 25 mmol/L (22-29); Chloride 107 mmol/L (96-108); Cholesterol 146 mg/dL (<200); Estimated Glomerular Filt Rate > 60; HDL Cholesterol 32 mg/dL (>40); Potassium 4.3 mmol/L (3.3-5.1); Sodium 139 mmol/L (135-145); Total Protein 7.1 g/dL (6.5-8.0); Triglycerides 79 mg/dL (<150)
[2024-09-17 11:58] LABS: HBS Num1 2.23 mIU/mL (0-7.99); HBc Num1 0.14 S/CO (0.00-0.79); HBsAGNum1 0.48 S/CO (0.00-0.99); HIV Num 1 0.11 S/CO (0.00-0.99); Hepatitis B Surface Antigen Negative (Negative); ~HepC Num1 0.20 S/CO (0.00-0.79); ~Hepatitis B Surface Antibody NONREACTIVE (Nonreactive); ~Hepatitis C Antibody Nonreactive (Nonreactive)
[2024-09-17 12:05] LABS: Free T4 (Free Thyroxine) 0.88 ng/dL (0.71-1.85); Thyroid Stimulating Hormone 2.61 uIU/mL (0.32-4.0)
[2024-09-17 13:18] LABS: CT PCR Urine NOT DETECTED (Not Detect.); NG PCR Urine NOT DETECTED (Not Detect.)
[2024-09-18 06:22] LABS: Rubeola IgG (Measles) 85.50 AU/mL
[2024-09-19 04:06] LABS: ~Hepatitis A Antibody IgG 6.55 S/CO (0.00-0.99)
[2024-09-20 08:28] LABS: TS Negative Control Passed; TS Panel A 0; TS Panel B 0; TS Positive Control Passed; TSpotTB Negative (Negative)
== END 2024-09-17 10:02 | disposition home or self-care (01) ==
LOC: HO.HHCL 10:01
PROVIDERS: PCP Family Medicine; Visit Provider Family Medicine
DX: Z00.00 Encounter for general adult medical examination without abnormal findings (principal); Z11.3 Encounter for screening for infections with a predominantly sexual mode of transmission; Z11.4 Encounter for screening for human immunodeficiency virus [HIV]; Z11.59 Encounter for screening for other viral diseases; Z11.1 Encounter for screening for respiratory tuberculosis; F33.9 Major depressive disorder, recurrent, unspecified; F90.9 Attention-deficit hyperactivity disorder, unspecified type; E28.2 Polycystic ovarian syndrome; J45.20 Mild intermittent asthma, uncomplicated; Z68.42 Body mass index [BMI] 45.0-49.9, adult
CPT/HCPCS: 36415; 80048; 80061; 80076; 82306; 83036; 83525; 84439; 84443; 85027; 86481; 86592; 86704; 86706; 86708; 86735; 86762; 86765; 86787; 86803; 87340; 87389; 87491; 87591